=== PATIENT | female | born 1955 | race Caucasian/White ===

== ENCOUNTER 2020-03-28 23:34 | Emergency (ER) | payer MEDICARE, MEDICAID | END 2020-03-29 00:20 | disposition home or self-care (01) | LOC: LB.ED 23:34 | DX: Z20.828 Contact with and (suspected) exposure to other viral communicable diseases (principal) | CPT/HCPCS: 99281; U0002 ==

== ENCOUNTER 2020-04-22 08:06 | Day surgery (SDC) | payer MEDICARE, MEDICAID ==
[~2020-04-22 08:06] MED LIST: Lactated Ringers 1,000 ML IV SCH; Sodium Chloride 0.9% 10 ML Syringe FLUSH PRN; ceFAZolin 1 GM in Sodium Chloride 0.9% 50 ML IV ONE
[2020-04-22] MEDS ORDERED: Propofol 1,000 MG/100 ML SDV ONE (10:30)
[2020-04-22] MEDS ORDERED: Midazolam 1 MG/ML 2 ML SDV ONE (10:30)
[2020-04-22] MEDS ORDERED: Dexamethasone 4 MG/ML SDV ONE (10:30)
[2020-04-22] MEDS ORDERED: Ondansetron 4 MG/2 ML SDV ONE (10:30)
[2020-04-22] MEDS ORDERED: fentaNYL 100 MCG/2 ML SDV ONE (10:30)
[2020-04-22] MEDS ORDERED: Ketorolac 30 MG/ML SDV ONE (10:30)
[2020-04-22 12:08] VITALS: BP 149/75; PULSE 78
== END 2020-04-22 12:10 | disposition home or self-care (01) ==
LOC: LB.SDS 08:06
PROVIDERS: ATTEND Podiatrist Foot & Ankle Surgery
DX: M20.41 Other hammer toe(s) (acquired), right foot (principal); I10 Essential (primary) hypertension; E11.40 Type 2 diabetes mellitus with diabetic neuropathy, unspecified; Z88.1 Allergy status to other antibiotic agents; Z88.2 Allergy status to sulfonamides
CPT/HCPCS: J1100; J1885; J2250; J2405; J2704; J3010; J7120

== ENCOUNTER 2022-08-24 21:02 | Emergency (ER) | payer MEDICARE, MEDICAID ==
[2022-08-24 21:27] VITALS: BP 153/82; PULSE 86
[2022-08-24] MEDS ORDERED: Cephalexin 500 MG Cap ONE (23:00)
== END 2022-08-24 22:00 | disposition home or self-care (01) ==
LOC: LB.ED 21:02
DX: L03.032 Cellulitis of left toe (principal)
CPT/HCPCS: 99282; 99283; A9270

== ENCOUNTER 2025-02-10 18:03 | Emergency (ER) | payer MEDICARE, MEDICAID ==
[2025-02-10 18:24] VITALS: BP 126/81; PULSE 84
== END 2025-02-10 19:00 | disposition home or self-care (01) ==
LOC: LB.ED 18:03
DX: S92.411A Displaced fracture of proximal phalanx of right great toe, initial encounter for closed fracture (principal); I10 Essential (primary) hypertension; E11.9 Type 2 diabetes mellitus without complications; Z88.2 Allergy status to sulfonamides; Z88.1 Allergy status to other antibiotic agents; Z79.899 Other long term (current) drug therapy; Z79.82 Long term (current) use of aspirin; Z79.84 Long term (current) use of oral hypoglycemic drugs; X50.1XXA Overexertion from prolonged static or awkward postures, initial encounter; Y93.89 Activity, other specified
CPT/HCPCS: 73630-RT; 99283; A9270-GY